=== PATIENT | female | born 1955 | race Caucasian/White ===

== ENCOUNTER 2018-10-01 22:03 | Emergency (ER) | payer BC ==
[2018-10-01] MEDS ORDERED: DIPH,PERTUS(ACELL)TETVAC-LF 0.5 ML VIAL IM ONE (22:48)
--- NOTE | 2018-10-01 22:53 | ED ---
General Adult HPI - General Chief complaint: Syncope Stated complaint: Fall/Syncope Time Seen by Provider: 10/01/18 22:20 Source: patient Mode of arrival: ambulatory Limitations: no limitations - History of Present Illness Initial comments: Dictation was produced using [employer] dictation software. please excuse any grammatical, word or spelling errors. Chief Complaint: 63-year-old female presents with facial pain after syncope. History of Present Illness: Patient 63-year-old female she was at a [employer] she had a couple beers. Patient states she smoked a marijuana joint. Immediately after inhaling the marijuana smoke she became immediately dizzy. She dropped the water and bent down to pick it up then syncopized. She fell forward and was unconscious for several seconds. Patient states she hasn't smoked marijuana for several years. She reports that there was one other individual who was also smoking marijuana however this was his joint and he smokes on a regular basis. She feels well at the moment. Denies any neuro deficits. No numbness and weakness or paresthesias. Denies any headache. She does report some facial pain. She does have abrasions to her nose and face. Patient denies any pain complaints at the moment. Patient has any cardiac history. No history of syncope. The ROS documented in this emergency department record has been reviewed and confirmed by me. Those systems with pertinent positive or negative responses have been documented in the HPI. All other systems are other negative and/or noncontributory. PHYSICAL EXAM: General Impression: Alert and oriented x3, not in acute distress HEENT: Abrasions to the lower lip, nose, right maxillary face, extra-ocular movements intact, pupils equal and reactive to light bilaterally, mucous membranes moist. Cardiovascular: Heart regular rate and rhythm, S1&S2 audible, no murmurs, rubs or gallops Chest: Lungs clear to auscultation bilaterally, no rhonchi, no wheeze, no rales Abdomen: Bowel sounds present, abdomen soft, non-tender, non-distended, no organomegaly Musculoskeletal: Pulses present and equal in all extremities, no peripheral edema Motor: no focal deficits noted Neurological: CN II-XII grossly intact, no focal motor or sensory deficits noted Skin: Intact with no visualized rashes Psych: Normal affect and mood ED course: 63-year-old female presents with syncope after smoking marijuana. Signs upon arrival are within acceptable limits. EKG is unremarkable.Tetanus updated. CT of the head and neck and face shows no occult injuries. Patient clear for discharge. This point is unclear what caused her syncope is likely the marijuana. Patient and will try baseline in the emergency department. Patient on nothing by mouth. Pain is controlled. Patient went for discharge. Return parameters discussed. Patient told to refrain from marijuana smoke. Patient be discharged. EKG interpretation: Ventricular rate 80, normal sinus rhythm,. Interval 150, Q's 84, QTc 442. No SD prolongation, no QTC prolongation, no ST or T-wave changes noted. No QT prolongation, no needlelike Q waves, no ST or T-wave changes. No delta wave no Brugada pattern Overall, this EKG is unremarkable - Related Data Home Medications Medication Instructions Recorded Confirmed Venlafaxine HCl [Effexor XR] 150 mg PO DAILY 10/01/18 10/01/18 Allergies Allergy/AdvReac Type Severity Reaction Status Date / Time codeine Allergy Itching Verified 10/01/18 22:53 Review of Systems ROS Statement: Those systems with pertinent positive or pertinent negative responses have been documented in the HPI. ROS Other: All systems not noted in ROS Statement are negative. Past Medical History Past Medical History: No Reported History History of Any Multi-Drug Resistant Organisms: None Reported Past Surgical History: Orthopedic Surgery Additional Past Surgical History / Comment(s): LEFT KNEE Past Psychological History: No Psychological Hx Reported Smoking Status: Current every day smoker Past Alcohol Use History: Occasional Past Drug Use History: Marijuana General Exam Limitations: no limitations Course Vital Signs 10/01/18 10/01/18 22:09 22:34 Temperature 98.3 F Pulse Rate 97 85 Respiratory 18 16 Rate Blood Pressure 108/45 108/64 O2 Sat by Pulse 99 97 Oximetry Disposition Clinical Impression: Syncope Disposition: HOME SELF-CARE Condition: Good Is patient prescribed a controlled substance at d/c from ED?: No Referrals: Johnathon Villarreal DO [Primary Care Provider] - 1-2 days Time of Disposition: 00:03
--- NOTE | 2018-10-01 23:37 | CT ---
EXAM: CT Head Without Intravenous Contrast CLINICAL HISTORY: ITS.REASON CT Reason: Pain TECHNIQUE: Axial computed tomography images of the head/brain without intravenous contrast. This CT exam was performed using one or more of the following dose reduction techniques: automated exposure control, adjustment of the mA and/or kV according to patient size, and/or use of iterative reconstruction technique. COMPARISON: No relevant prior studies available. FINDINGS: Brain: No hemorrhage. No edema. Ventricles: Unremarkable. No ventriculomegaly. Bones/joints: No acute fracture. Soft tissues: Unremarkable. Sinuses: No fluid levels. Mastoid air cells: Unremarkable as visualized. No mastoid effusion. IMPRESSION: No acute intracranial findings EXAM: CT Cervical Spine Without Intravenous Contrast CLINICAL HISTORY: ITS.REASON CT Reason: Pain TECHNIQUE: Axial computed tomography images of the cervical spine without intravenous contrast. This CT exam was performed using one or more of the following dose reduction techniques: automated exposure control, adjustment of the mA and/or kV according to patient size, and/or use of iterative reconstruction technique. COMPARISON: No relevant prior studies available. FINDINGS: Vertebrae: No acute fracture. Discs/spinal canal/neural foramina: No suspicious findings. Soft tissues: Unremarkable. IMPRESSION: No acute findings.
--- NOTE | 2018-10-01 23:54 | CT ---
EXAM: CT Maxillofacial Without Intravenous Contrast CLINICAL HISTORY: ITS.REASON CT Reason: Pain TECHNIQUE: Axial computed tomography images of the face without intravenous contrast. This CT exam was performed using one or more of the following dose reduction techniques: automated exposure control, adjustment of the mA and/or kV according to patient size, and/or use of iterative reconstruction technique. COMPARISON: No relevant prior studies available. FINDINGS: Bones/joints: No acute fracture. Soft tissues: Soft tissue injury to the lower lip. Orbits: Unremarkable. Sinuses: No air-fluid levels. IMPRESSION: Soft tissue injury to the lower lip. No fracture.
[2018-10-02 00:08] VITALS: BP 144/74; PULSE 79; RESP 18; TEMP 97
== END 2018-10-02 00:08 | disposition home or self-care (01) ==
LOC: EC 22:03
DX: R55 Syncope and collapse (principal); S00.31XA Abrasion of nose, initial encounter; S00.511A Abrasion of lip, initial encounter; F17.200 Nicotine dependence, unspecified, uncomplicated; Z23 Encounter for immunization; Z79.899 Other long term (current) drug therapy; Z88.5 Allergy status to narcotic agent; W19.XXXA Unspecified fall, initial encounter
CPT/HCPCS: 70450; 70486; 72125; 90471; 90715; 93005; 99284